=== PATIENT | female | born 1990 | race Caucasian/White ===

== ENCOUNTER 2020-06-21 15:58 | Emergency (ER) | payer BC ==
--- NOTE | 2020-06-21 18:10 | EDM.PDOC ---
ED HPI GENERAL MEDICAL PROBLEM - General Chief Complaint: MOLDER SWEEP Problem Stated Complaint: 11 WEEKS PG/BLEEDING Time Seen by Provider: 06/21/20 16:10 Source of Information: Reports: Patient History Limitations: Reports: No Limitations - History of Present Illness INITIAL COMMENTS - FREE TEXT/NARRATIVE: Patient is a 29-year-old female G5, 11 weeks who presents to the emergency department with complaints of vaginal bleeding and low back pain. She states that she woke up during the night and had some light spotting only notable on the toilet paper. The same time she had some mild low back pain. About 2 hours prior to coming the ER, she began to pass a moderate amount of bright red blood with some small clots in the low back pain increased. Patient has a history of 3 previous miscarriages. She denies any suprapubic cramping, burning with urination, or dizziness. Patient is visiting from out of town. Her MOLDER SWEEP is Dr. Archuleta. She states that she had an ultrasound done at 9 weeks 6 days and was found to be normal. Lower Back Pain Score (Numeric/FACES): 6 - Related Data Allergies Allergy/AdvReac Type Severity Reaction Status Date / Time bee venom protein (honey bee) Allergy Anaphylactic Verified 06/21/20 16:12 Shock Home Meds: Home Meds cephALEXin [Keflex] 500 mg PO Q6H 5 Days #20 cap 06/21/20 [Rx] Past Medical History MOLDER SWEEP History: Reports: - Past Surgical History Female Surgical History: Reports: Section Social & Family History - Tobacco Use Smoking Status *Q: Never Smoker - Caffeine Use Caffeine Use: Reports: None - Recreational Drug Use Recreational Drug Use: No ED ROS GENERAL - Review of Systems Review Of Systems: See Below Constitutional: Reports: No Symptoms. Denies: Fever, Chills HEENT: Reports: No Symptoms Respiratory: Reports: No Symptoms Cardiovascular: Reports: No Symptoms Endocrine: Reports: No Symptoms GI/Abdominal: Reports: No Symptoms : Reports: Other (vaginal bleeding) Musculoskeletal: Reports: Back Pain (low back) Skin: Reports: No Symptoms Neurological: Reports: No Symptoms Psychiatric: Reports: No Symptoms Hematologic/Lymphatic: Reports: No Symptoms Immunologic: Reports: No Symptoms ED EXAM - Physical Exam Exam: See Below Exam Limited By: No Limitations General Appearance: Alert, WD/WN, No Apparent Distress Respiratory/Chest: No Respiratory Distress, Lungs Clear, Normal Breath Sounds, No Accessory Muscle Use, Chest Non-Tender Cardiovascular: Normal Peripheral Pulses, Regular Rate, Rhythm, No Edema, No Gallop, No JVD, No Murmur, No Rub GI/Abdominal Exam: Normal Bowel Sounds, Soft, Non-Tender, No Organomegaly, No Distention, No Abnormal Bruit, No Mass, Pelvis Stable (Female) Exam: Normal External Exam, Vaginal Bleeding (mild). No: Cervical Dilatation, Tissue Present in Cervix/Vagina, Vaginal Lesions Back Exam: Normal Inspection, Full Range of Motion, NT Neurological: Alert, Oriented, CN II-XII Intact, Normal Cognition, Normal Gait, Normal Reflexes, No Motor/Sensory Deficits Psychiatric: Normal Affect, Normal Mood Skin Exam: Warm, Dry, Intact, Normal Color, No Rash Course - Vital Signs Last Recorded V/S: Last Vital Signs Temp 98.4 F 06/21/20 16:13 Pulse 88 06/21/20 16:13 Resp 14 06/21/20 16:13 BP 139/96 H 06/21/20 16:13 Pulse Ox 100 06/21/20 16:13 - Orders/Labs/Meds Orders: Active Orders 24 hr Category Date Time Status Pelvic Exam, Set Up [RC] ASDIRECTED Care 06/21/20 18:10 Active ABO/RH TYPE [BBK] Stat Lab 06/21/20 16:45 Received CULTURE URINE [RM] Stat Lab 06/21/20 18:18 Ordered Labs: Laboratory Tests 06/21/20 06/21/20 06/21/20 Range/Units 16:45 16:45 16:50 WBC 10.13 H (3.98-10.04) K/mm3 RBC 3.98 (3.98-5.22) M/mm3 Hgb 11.4 (11.2-15.7) gm/dl Hct 34.5 (34.1-44.9) % MCV 86.7 (79.4-94.8) fl MCH 28.6 (25.6-32.2) pg MCHC 33.0 (32.2-35.5) g/dl RDW Std Deviation 38.6 (36.4-46.3) fL Plt Count 249 (182-369) K/mm3 MPV 9.4 (9.4-12.3) fl Neut % (Auto) 68.5 (34.0-71.1) % Lymph % (Auto) 21.6 (19.3-51.7) % [place] % (Auto) 7.3 (4.7-12.5) % Eos % (Auto) 2.2 (0.7-5.8) Baso % (Auto) 0.2 (0.1-1.2) % Neut # (Auto) 6.94 H (1.56-6.13) K/mm3 Lymph # (Auto) 2.19 (1.18-3.74) K/mm3 [place] # (Auto) 0.74 H (0.24-0.36) K/mm3 Eos # (Auto) 0.22 (0.04-0.36) K/mm3 Baso # (Auto) 0.02 (0.01-0.08) K/mm3 Manual Slide Review Normal smear Sodium 136 (136-145) mEq/L Potassium 3.8 (3.5-5.1) mEq/L Chloride 104 (98-107) mEq/L Carbon Dioxide 25 (21-32) mEq/L Anion Gap 10.8 (5-15) BUN 9 (7-18) mg/dL Creatinine 0.6 (0.55-1.02) mg/dL Est Cr Clr Drug Dosing 127.62 mL/min Estimated GFR (MDRD) > 60 (>60) mL/min BUN/Creatinine Ratio 15.0 (14-18) Glucose 92 (74-106) mg/dL Calcium 8.5 (8.5-10.1) mg/dL Total Bilirubin 0.2 (0.2-1.0) mg/dL AST 16 (15-37) U/L ALT 20 (14-59) U/L Alkaline Phosphatase 63 (46-116) U/L Total Protein 6.8 (6.4-8.2) g/dl Albumin 3.1 L (3.4-5.0) g/dl Globulin 3.7 gm/dL Albumin/Globulin Ratio 0.8 L (1-2) HCG, Quant 27380.0 mIU/mL Urine Color Yellow (Yellow) Urine Appearance Clear (Clear) Urine pH 7.0 (5.0-8.0) Ur Specific [place] 1.015 (1.005-1.030) Urine Protein Negative (Negative) Urine Glucose (UA) Negative (Negative) Urine Ketones Negative (Negative) Urine Occult Blood 3+ H (Negative) Urine Nitrite Negative (Negative) Urine Bilirubin Negative (Negative) Urine Urobilinogen 0.2 (0.2-1.0) Ur Leukocyte Esterase 1+ H (Negative) Urine RBC 5-10 H (0-5) /hpf Urine WBC 5-10 H (0-5) /hpf Ur Squamous Epith Cells 5-10 H (0-5) /hpf Urine Bacteria Few (FEW) /hpf Urine Mucus Few (FEW) /hpf - Re-Assessments/Exams Free Text/Narrative Re-Assessment/Exam: 06/21/20 18:30 Patient's hematology was grossly unremarkable. hCG is elevated appropriately at 50,921. Urinalysis had 3+ occult blood, 1+ leukocyte esterase, 5-10 RBCs, 5-10 WBCs, and 5-10 squamous epithelial cells. She is having no urinary symptoms. Feel this is likely due to contamination; however, since she is , we will treat with Keflex. Urinalysis has been sent for culture. Transvaginal OB ultrasound showed a single intrauterine gestation with an estimated gestational age of 11 weeks 5 days. Heart rate was 155. There was also a small subchorionic hemorrhage visualized with echogenic material within the endocervical canal most likely representing blood. No other complicating processes were seen. Pelvic exam was completed. There is no cervical dilation. There was a scant amount of bleeding from the cervical os. Discussed these results with the patient and that the likely cause of her vaginal bleeding is the subchorionic hemorrhage.. We will discharge her home with instructions to take it easy. Recommend no sexual activity or heavy lifting until evaluated by her MOLDER SWEEP upon return home. Return to the ER for any worsening symptoms. Departure - Departure Time of Disposition: 18:31 Disposition: Home, Self-Care 01 Condition: Good Clinical Impression: Subchorionic hemorrhage in first trimester Qualifiers: Fetus number: single or unspecified fetus Qualified Code(s): O41.8X10 - Other specified disorders of amniotic fluid and membranes, first trimester, not applicable or unspecified - Discharge Information *PRESCRIPTION DRUG MONITORING PROGRAM REVIEWED*: No *COPY OF PRESCRIPTION DRUG MONITORING REPORT IN PATIENT BEVERLY: No Prescriptions: cephALEXin [Keflex] 500 mg PO Q6H 5 Days #20 cap Instructions: Vaginal Bleeding During , First Trimester, [id number], Subchorionic Hematoma Referrals: PCP,Not In Area [Primary Care Provider] - Forms: ED Department Discharge Additional Instructions: You were seen in the emergency department today for vaginal bleeding in . Your work-up included blood work, urinalysis, and a transvaginal ultrasound. Your work-up was found to be overall normal with the exception of a small subchorionic hemorrhage visualized on the ultrasound. Your hCG levels were appropriately elevated. Your cervix is closed. As we discussed, a subchorionic hemorrhage does not mean that you are miscarrying, however it does increase the chances of a miscarriage. Recommend that you take it easy over the next few days. Abstain from sexual activity or any heavy lifting. You may use [id number] Tylenol as needed for any discomfort. There was a small amount of bacteria in your urine, therefore, you have been started keflex which is an antibiotic. Take this medication as prescribed. Your urine has been sent for culture. If this culture should grow a bacteria that is not susceptible to this medication, you will be notified. Recommend that you follow-up with your MOLDER SWEEP first thing Wednesday morning. Return to the ER for any worsening symptoms. Sepsis Event Note (ED) - Evaluation Sepsis Screening Result: No Definite Risk - Focused Exam Vital Signs: Vital Signs Temp Pulse Resp BP Pulse Ox 06/21/20 16:13 98.4 F 88 14 139/96 H 100 - My Orders Last 24 Hours: My Active Orders 06/21/20 16:45 ABO/RH TYPE [BBK] Stat 06/21/20 18:10 Pelvic Exam, Set Up [RC] ASDIRECTED 06/21/20 18:18 CULTURE URINE [] Stat - Assessment/Plan Last 24 Hours: My Active Orders 06/21/20 16:45 ABO/RH TYPE [BBK] Stat 06/21/20 18:10 Pelvic Exam, Set Up [RC] ASDIRECTED 06/21/20 18:18 CULTURE URINE [] Stat
--- NOTE | 2020-06-21 18:11 | US ---
First trimester obstetrical: Multiple real-time images were obtained transabdominally. Transvaginal images were obtained of the cervix. Comparison: No prior study for current . Dates: LMP: LMP given as 01/09/21, KOFI 04/04/20, gestational age 11 weeks 1 day Current ultrasound: KOFI 01/05/21, gestational age 11 weeks 5 days Single intrauterine gestation is seen. Amniotic fluid volume is normal. Embryo is identified. Small subchorionic hemorrhage is noted. There is echogenic material within the cervix most likely relating to blood given the history of bleeding. Cervical length is 3.8 cm. Right maternal ovary not well visualized. Left maternal ovary is seen and appears within normal limits. Measurements: [place]-rump length: 4.89 cm - 11 weeks 5 days Heart rate: 155 bpm Impression: 1. Single intrauterine gestation. Dates as noted above. 2. Small subchorionic hemorrhage. Echogenic material within the endocervical canal most likely representing blood. 3. No other complicating process is seen. Diagnostic code #3 This report was dictated in MDT
== END 2020-06-21 18:58 | disposition home or self-care (01) ==
LOC: JD.ED 15:58
DX: O20.8 Other hemorrhage in early pregnancy (principal); Z3A.11 11 weeks gestation of pregnancy; Z91.030 Bee allergy status
CPT/HCPCS: 36415; 76817; 76817-26; 80053; 81001; 84702; 85025; 86900; 86901; 87086; 99283; 99284-25